=== PATIENT | female | born 1985 ===

== ENCOUNTER 2020-06-07 09:35 | Outpatient (CLI) | payer OTHER ==
[2020-06-07] MEDS ORDERED: PRENATAL TABLE1 EAC1 PO (09:51)
== END 2020-06-08 14:08 | disposition home or self-care (01) ==
LOC: OBS/DEL 09:35
PROVIDERS: ATTEND Obstetrics & Gynecology
DX: O47.1 False labor at or after 37 completed weeks of gestation (principal)

== ENCOUNTER 2020-06-09 10:39 | Inpatient (IN) | payer OTHER ==
[~2020-06-09] VITALS: Ht 167.6 cm; Wt 93.0 kg
[~2020-06-09 10:39] MED LIST: PRENATAL TABLE1 EAC1 PO
== END 2020-06-11 13:22 | disposition home or self-care (01) | DRG 807 ==
LOC: OBS/DEL 10:39 → LDR 14:19 → OB/GYN 14:19
PROVIDERS: ADMIT Obstetrics & Gynecology; ATTEND Obstetrics & Gynecology
PROC: 10E0XZZ Delivery of Products of Conception, External Approach (ICD-10-PCS; principal; 2020-06-09)
PROC: 0W8NXZZ Division of Female Perineum, External Approach (ICD-10-PCS; 2020-06-09)
PROC: 4A1HXFZ Monitoring of Products of Conception, Cardiac Rhythm, External Approach (ICD-10-PCS; 2020-06-09)
PROC: 3E033VJ Introduction of Other Hormone into Peripheral Vein, Percutaneous Approach (ICD-10-PCS; 2020-06-09)
DX: O80 Encounter for full-term uncomplicated delivery (principal); Z37.0 Single live birth; Z3A.38 38 weeks gestation of pregnancy; Z20.828 Contact with and (suspected) exposure to other viral communicable diseases